=== PATIENT | female | born 2000 | race Native Hawaiian/Other Pacific Islander ===

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

== ENCOUNTER 2022-06-24 14:04 | Emergency (ER) | payer BC, OTHER ==
[~2022-06-24] VITALS: Ht 160 cm; Wt 55.8 kg
[2022-06-24 15:01] LABS: PLATELET COUNT 290 K/uL (152-353)
[2022-06-24 15:06] LABS: POTASSIUM 4.3 mmol/L (3.6-5.2)
[2022-06-24 15:57] VITALS: BP 101/60; TEMP 97.1
== END 2022-06-24 15:57 | disposition home or self-care (01) ==
LOC: ED 14:04
PROVIDERS: Family Medicine
DX: O21.9 Vomiting of pregnancy, unspecified (principal); Z3A.08 8 weeks gestation of pregnancy
CPT/HCPCS: 36415; 80048; 81002; 81025; 85027; 99284